=== PATIENT | male | born 1950 | race Caucasian/White ===

== ENCOUNTER 2019-10-22 21:06 | Emergency (ER) | payer MEDICARE ==
[~2019-10-22] VITALS: Ht 185.4 cm; Wt 98.1 kg
[2019-10-22 21:21] VITALS: BP 123/72
[2019-10-22] MEDS ORDERED: OXYMETAZOLINE NASAL SPRAY 0.05%,30ML NAS ONE (21:30)
[2019-10-22] MEDS ORDERED: OXYMETAZOLINE NASAL SPRAY 0.05%,30ML ONE (22:43)
== END 2019-10-22 23:11 | disposition home or self-care (01) ==
LOC: ED 23:00
DX: R04.0 Epistaxis (principal)
CPT/HCPCS: 99282